=== PATIENT | female | born 1945 | race Caucasian/White ===

== ENCOUNTER 2017-02-26 10:16 | Emergency (ER) | payer OTHER, MEDICARE ==
--- NOTE | 2017-02-26 11:50 | ED ORDER SUMMARY ---
..... Patient: JESSICA CARRILLO OrderSheet [facility] VisitID: [id number] [address] [place] [address] 71y, F Registration Date/Time: 02/26/2017 ORDER SHEET Weight: 81.6 kg (stated) Allergies: Niacin, Oxycodone, LIsinopril GENERAL ORDERS: MEDICATION ORDERS: IV FLUIDS: Dilaudid IV 1 mg (NOW) (10:52 02/26/2017 Elvis MOTLEY) (Ack 10:54 RCollier R.N.) (11:03 RCollier R.N.) Ativan IV 0.5 mg (NOW) (:52 02/26/2017 Elvis MOTLEY) (Ack 10:54 RCollier R.N.) (11:03 RCollier R.N.) ORDER SHEET NOTES: [Electronically signed by Laura Conklin R.N. (12:28 02/26/2017)] [Electronically signed by Simeon Astorga MD (23:18 03/01/2017)] [Electronically locked/signed by Laura Conklin R.N. (12:28 02/26/2017)]
--- NOTE | 2017-02-26 11:50 | ED CLINICAL REPORT ---
Clinical Report - Physicians/Mid Levels Formerly [facility] [address] [place] [address] 02/26/2017 10:16 Patient: JESSICA CARRILLO Time Seen: 10:36 Feb 26 2017. Arrived- By private vehicle. Historian- patient. CPT: ER phys charges level 4 (#[id number]). HISTORY OF PRESENT ILLNESS Chief Complaint: Intractable pain from right lung mass. ( patient was seen 2 days ago for intractable pain. Her physicians at the cancer care [facility] in [place] saw her for this. They increased her morphine from 7.5 mg to 15 mg per dose. This is worked well for her but she notes she missed the middle of the night dose last night and woke up with intractable pain this morning. She feels if she can get ahead of the pain in the ER, her current oral regimen would take care of the rest. She does not feel she needs an adjustment in her home, pain medications.). This started just prior to arrival today and is still present. At its maximum, severity described as severe. When seen in the E.D., severity described as severe. Modifying factors- worsened by movement and cough. Relieved by rest. No current or associated symptoms. Similar symptoms previously: Recent medical care: The patient was seen recently at another facility in a clinic (2 days ago). Seen for similar symptoms. Evaluation/treatment: medication prescribed- Increased morphine dose to 15mg q4-6 hours. REVIEW OF SYSTEMS No fever, sore throat, sinus drainage, nasal congestion or cough. No difficulty breathing, abdominal pain, nausea, vomiting or diarrhea. No black stools, bloody stools, chills, difficulty with urination or skin rash. No calf pain, headache, blackouts or double vision. The patient has had chest pain (chronically) and back pain. No difficulty with ambulation. She has had constipation (3 days). All systems otherwise negative, except as recorded above. PAST HISTORY Lung cancer right lung with mets. [facility]. Cholecystectomy. Hysterectomy. Tubal Ligation. history. Medications: [place] 3 Oral 2 capsules, daily. MetFORMIN HCl Oral (Tablet 1000 mg) 1 tablet, 2x a day. ProAir HFA Inhalation (Aerosol Solution 108 (90 Base) mcg/act) 2 puffs, q 4 hours as needed. ASA Oral 81 mg, daily. Voltaren 1% trans gel 2g, 4x a day as needed. Imipramine HCl Oral (Tablet 10 mg) 1-2 tabs, at bedtime. Toujeo 300 unit/ml- 17units, daily. Fluticasone-Salmeterol Inhalation (Aerosol 115-21 mcg/act), bid. Clobetasol Propionate External (Ointment 0.05 %), bid. Ondansetron Oral 4 mg, as needed. Magnesium Oxide Oral (Tablet 400 (240 Mg) mg) 1 tablet, bid. Senna Oral (Tablet 8.6 mg) 2 tablets, daily. Levothyroxine Sodium Oral (Tablet 25 mcg) 1 tablet, daily. Morphine Sulfate ER Beads Oral 15mg, every 5 hours, pain. Allergies: LIsinopril.(itching) Niacin.(itching, rash) Oxycodone.(itching, rash). SOCIAL HISTORY Never smoker. No alcohol use or drug use. ADDITIONAL NOTES The nursing notes have been reviewed. PHYSICAL EXAM Vital Signs: 02/26/2017 10:24 BP: 137/63. HR: 69. RR: 18. O2 saturation: 93%. Temp: 97.3 F. Gresham-Curiel pain scale: 8/10. Appearance: Alert. Appears to be in pain. Patient in moderate distress. Eyes: Eyes normal inspection. ENT: Pharynx normal. Neck: Normal inspection. CVS: Normal heart rate and rhythm. Heart sounds normal. Respiratory: No respiratory distress. Breath sounds normal. Abdomen: Nontender. Back: Normal inspection. Skin: Normal skin color. No rash. Extremities: Extremities exhibit normal ROM. Neuro: Oriented X 3. No motor deficit. No sensory deficit. PROGRESS AND PROCEDURES Course of Care: [place] Dilaudid 0.5 mg IV. Ativan 0.5 mg IV. Patient is stable. Symptoms much better. Ativan seems to help a lot as well she notes. Patient is stable. Symptoms much better. Patient/family counseled. Disposition: Discharged. Condition: stable and improved. CLINICAL IMPRESSION Intractable pain due to metastatic lung cancer. INSTRUCTIONS Warnings: Further evaluation is necessary. SEDATIVE MEDICATION: You were given sedative medication during your visit. Do not drive or operate dangerous machinery. GENERAL WARNINGS: Return or contact your physician immediately if your condition worsens or changes unexpectedly, if not improving as expected, or if other problems arise. Your Current Medications: STOP TAKING THE FOLLOWING MEDICATIONS: Morphine Sulfate ER Beads Oral : 15mg every 5 hours, pain. Prescription Medications: Ativan 0.5 mg: take 1 orally every 6 hours as needed. Dispense ten (10). No refill. Dilaudid 2mg take 1-2 po q 4 hours prn pain # 30 no refill. Follow-up: Follow up with your doctor in four days. Call for the next available appointment. Understanding of the discharge instructions verbalized by patient and family. Discharge instructions reviewed with and understanding was verbalized by spouse. (Electronically signed by Simeon Astorga MD 03/01/2017 23:18)
--- NOTE | 2017-02-26 11:50 | ED ORDER SUMMARY ---
..... Patient: JESSICA CARRILLO OrderSheet [facility] VisitID: [id number] [address] [place] [address] 71y, F Registration Date/Time: 02/26/2017 ORDER SHEET Weight: 81.6 kg (stated) Allergies: Niacin, Oxycodone, LIsinopril GENERAL ORDERS: MEDICATION ORDERS: IV FLUIDS: Dilaudid IV 1 mg (NOW) (10:52 02/26/2017 Elvis MOTLEY) (Ack 10:54 RCollier R.N.) (11:03 RCollier R.N.) Ativan IV 0.5 mg (NOW) (:52 02/26/2017 Elvis MOTLEY) (Ack 10:54 RCollier R.N.) (11:03 RCollier R.N.) ORDER SHEET NOTES: [Electronically signed by Laura Conklin R.N. (12:28 02/26/2017)] [Electronically signed by Simeon Astorga MD (23:18 03/01/2017)] [Electronically locked/signed by Laura Conklin R.N. (12:28 02/26/2017)]
--- NOTE | 2017-02-26 11:50 | ED NURSING NOTES ---
Clinical Report - Nurses [facility] [address] [place] [address] 02/26/2017 10:16 Patient: JESSICA CARRILLO TRIAGE Triage time 10:24. Acuity: LEVEL 4. Chief Complaint: (pain in right lung). Alert. --10:30 Laura Conklin R.N. 10:24 02/26/17. BP: 137/63. HR: 69. RR: 18. O2 saturation: 93% on room air. Temp: 97.3 F (oral). Gresham-Curiel pain scale: 8/10. --10:30 Laura Conklin R.N. Weight: 81.6 kg stated. Height/Length: 65 inches Per Patient. BMI: 30. --10:27 Laura Conklin R.N. Medications Morphine Sulfate ER Beads Oral 15mg, every 5 hours, pain. --10:32 Laura Conklin R.N. Levothyroxine Sodium Oral (Tablet 25 mcg) 1 tablet, daily. --10:41 Michelle Floyd R.N. Senna Oral (Tablet 8.6 mg) 2 tablets, daily. --10:42 Michelle Floyd R.N. Magnesium Oxide Oral (Tablet 400 (240 Mg) mg) 1 tablet, bid. --10:43 Michelle Floyd R.N. Ondansetron Oral 4 mg, as needed. --10:44 Michelle Floyd R.N. Clobetasol Propionate External (Ointment 0.05 %), bid. --10:45 Michelle Floyd R.N. Fluticasone-Salmeterol Inhalation (Aerosol 115-21 mcg/act), bid. --10:47 Michelle Floyd R.N. Toujeo 300 unit/ml- 17units, daily. --10:47 Michelle Floyd R.N. Imipramine HCl Oral (Tablet 10 mg) 1-2 tabs, at bedtime. --10:49 Michelle Floyd R.N. Voltaren 1% trans gel 2g, 4x a day as needed. --10:49 Michelle Floyd R.N. ASA Oral 81 mg, daily. --10:50 Michelle Floyd R.N. ProAir HFA Inhalation (Aerosol Solution 108 (90 Base) mcg/act) 2 puffs, q 4 hours as needed. --10:50 Michelle Floyd R.N. MetFORMIN HCl Oral (Tablet 1000 mg) 1 tablet, 2x a day. --10:51 Michelle Floyd R.N. [place] 3 Oral 2 capsules, daily. --10:52 Michelle Floyd R.N. Allergies Niacin.(itching, rash) --10:29 Laura Conklin R.N. Oxycodone.(itching, rash) --10:29 Laura Conklin R.N. LIsinopril.(itching) --10:29 Laura Conklin R.N. History Arrived by private vehicle. Historian: patient. Accompanied by family. Primary physician (Dr. Cantor (Dr Whitlock oncologist- [facility])). This started today. 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 (Morphine 15mg today at 0730, 650mg Tylenol today at 0730 & 0820). PAST MEDICAL HX: Immunizations: up-to-date. SOCIAL HX: Smoker- current status unknown. Never smoker. No alcohol use or drug use. FUNCTIONAL ASSESSMENT: Functional assessment performed: requires assistance with the activities of daily living; uses wheelchair, walker and cane- this mobility impairment is an ongoing problem. --10:30 Laura Conklin R.N. PROBLEMS: Cancer. --10:30 Laura Conklin R.N. ADDITIONAL SURGERIES: Cholecystectomy. Hysterectomy. Tubal Ligation. --10:30 Laura Conklin R.N. Interventions ID band on patient. To treatment room. --10:30 Laura Conklin R.N. PHYSICAL ASSESSMENT To room via wheelchair. Patient gowned. GENERAL / NEURO / PSYCH: Alert. Oriented X 4. Appears in pain. HEENT: Mucous membranes are pink. RESPIRATORY: Respirations not labored. CVS: Capillary refill less than 2 seconds. SKIN: Skin is warm and dry. --10:31 Laura Conklin R.N. NURSING PROGRESS NOTES Head of bed elevated. Two patient identifiers checked. Call light placed in reach. Side rails up x 1. Bed placed in lowest position. Brakes of bed on. --10:31 Laura Conklin R.N. Patient ready for evaluation- chart flagged. --10:31 Laura Conklin R.N. 10:37 02/26/2017 Site #1 started via IV in the right hand with an 20g angiocath, with aseptic technique and good blood return; one attempt. Blood drawn: rainbow set. Labeled in the presence of the patient and sent to the lab. Saline lock flushed with 10 mL saline. --11:02 Laura Conklin R.N. 11:00 02/26/2017 Dilaudid (HYDROmorphone HCl PF) IVP 0.5 mg given over 30 second(s) via site #1. Allergies verified, confirmed 5 rights and sedative warning given to the patient. IV patency established. IV site checked: no pain, redness, or swelling. IV flushed thoroughly pre- and post-medication administration. IVP given by RN. --11:03 Laura Conklin R.N. 11:01 02/26/2017 Ativan (LORazepam) IVP 0.5 mg given over 30 second(s) via site #1. Allergies verified, confirmed 5 rights and sedative warning given to the patient. IV patency established. IV site checked: no pain, redness, or swelling. IV flushed thoroughly pre- and post-medication administration. IVP given by RN. --11:03 Laura Conklin R.N. 11:04 02/26/2017 Dilaudid (HYDROmorphone HCl PF) IVP 0.5 mg given over 30 second(s) via site #1. Allergies verified, confirmed 5 rights and sedative warning given to the patient. IV patency established. IV site checked: no pain, redness, or swelling. IV flushed thoroughly pre- and post-medication administration. IVP given by RN ((to complete 1mg order)). --11:07 Laura Conklin R.N. DISPOSITION / DISCHARGE 12:21 02/26/17. BP: 108/86. HR: 72. RR: 15 (regular). O2 saturation: 95% on room air. Temp: deferred. Pain level now: 03/24. --12:26 Laura Conklin R.N. 12:21 02/26/2017 Site #1 removed upon discharge. Catheter intact. Manual pressure and bandage applied. --12:27 Laura Conklin R.N. Condition at departure: improved and stable. No learning barriers present. Discharge instructions provided and reviewed with the patient. Reviewed medication(s) side effects, precautions, dosing and course information. Prescription(s) given to the patient (ATIVAN, DILAUDID). Patient verbalized understanding. Written instructions provided in [place]. The patient was discharged home and accompanied by spouse. She left the Emergency Department in a wheelchair and via private vehicle. Spouse driving. --12:27 Laura Conklin R.N. Locked/Released at 02/26/2017 12:28 by Laura Conklin R.N.
--- NOTE | 2017-02-26 11:50 | ED NURSING NOTES ---
Clinical Report - Nurses [facility] [address] [place] [address] 02/26/2017 10:16 Patient: JESSICA CARRILLO TRIAGE Triage time 10:24. Acuity: LEVEL 4. Chief Complaint: (pain in right lung). Alert. --10:30 Laura Conklin R.N. 10:24 02/26/17. BP: 137/63. HR: 69. RR: 18. O2 saturation: 93% on room air. Temp: 97.3 F (oral). Gresham-Curiel pain scale: 8/10. --10:30 Laura Conklin R.N. Weight: 81.6 kg stated. Height/Length: 65 inches Per Patient. BMI: 30. --10:27 Laura Conklin R.N. Medications Morphine Sulfate ER Beads Oral 15mg, every 5 hours, pain. --10:32 Laura Conklin R.N. Levothyroxine Sodium Oral (Tablet 25 mcg) 1 tablet, daily. --10:41 Michelle Floyd R.N. Senna Oral (Tablet 8.6 mg) 2 tablets, daily. --10:42 Michelle Floyd R.N. Magnesium Oxide Oral (Tablet 400 (240 Mg) mg) 1 tablet, bid. --10:43 Michelle Floyd R.N. Ondansetron Oral 4 mg, as needed. --10:44 Michelle Floyd R.N. Clobetasol Propionate External (Ointment 0.05 %), bid. --10:45 Michelle Floyd R.N. Fluticasone-Salmeterol Inhalation (Aerosol 115-21 mcg/act), bid. --10:47 Michelle Floyd R.N. Toujeo 300 unit/ml- 17units, daily. --10:47 Michelle Floyd R.N. Imipramine HCl Oral (Tablet 10 mg) 1-2 tabs, at bedtime. --10:49 Michelle Floyd R.N. Voltaren 1% trans gel 2g, 4x a day as needed. --10:49 Michelle Floyd R.N. ASA Oral 81 mg, daily. --10:50 Michelle Floyd R.N. ProAir HFA Inhalation (Aerosol Solution 108 (90 Base) mcg/act) 2 puffs, q 4 hours as needed. --10:50 Michelle Floyd R.N. MetFORMIN HCl Oral (Tablet 1000 mg) 1 tablet, 2x a day. --10:51 Michelle Floyd R.N. [place] 3 Oral 2 capsules, daily. --10:52 Michelle Floyd R.N. Allergies Niacin.(itching, rash) --10:29 Laura Conklin R.N. Oxycodone.(itching, rash) --10:29 Laura Conklin R.N. LIsinopril.(itching) --10:29 Laura Conklin R.N. History Arrived by private vehicle. Historian: patient. Accompanied by family. Primary physician (Dr. Cantor (Dr Whitlock oncologist- [facility])). This started today. 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 (Morphine 15mg today at 0730, 650mg Tylenol today at 0730 & 0820). PAST MEDICAL HX: Immunizations: up-to-date. SOCIAL HX: Smoker- current status unknown. Never smoker. No alcohol use or drug use. FUNCTIONAL ASSESSMENT: Functional assessment performed: requires assistance with the activities of daily living; uses wheelchair, walker and cane- this mobility impairment is an ongoing problem. --10:30 Laura Conklin R.N. PROBLEMS: Cancer. --10:30 Laura Conklin R.N. ADDITIONAL SURGERIES: Cholecystectomy. Hysterectomy. Tubal Ligation. --10:30 Laura Conklin R.N. Interventions ID band on patient. To treatment room. --10:30 Laura Conklin R.N. PHYSICAL ASSESSMENT To room via wheelchair. Patient gowned. GENERAL / NEURO / PSYCH: Alert. Oriented X 4. Appears in pain. HEENT: Mucous membranes are pink. RESPIRATORY: Respirations not labored. CVS: Capillary refill less than 2 seconds. SKIN: Skin is warm and dry. --10:31 Laura Conklin R.N. NURSING PROGRESS NOTES Head of bed elevated. Two patient identifiers checked. Call light placed in reach. Side rails up x 1. Bed placed in lowest position. Brakes of bed on. --10:31 Laura Conklin R.N. Patient ready for evaluation- chart flagged. --10:31 Laura Conklin R.N. 10:37 02/26/2017 Site #1 started via IV in the right hand with an 20g angiocath, with aseptic technique and good blood return; one attempt. Blood drawn: rainbow set. Labeled in the presence of the patient and sent to the lab. Saline lock flushed with 10 mL saline. --11:02 Laura Conklin R.N. 11:00 02/26/2017 Dilaudid (HYDROmorphone HCl PF) IVP 0.5 mg given over 30 second(s) via site #1. Allergies verified, confirmed 5 rights and sedative warning given to the patient. IV patency established. IV site checked: no pain, redness, or swelling. IV flushed thoroughly pre- and post-medication administration. IVP given by RN. --11:03 Laura Conklin R.N. 11:01 02/26/2017 Ativan (LORazepam) IVP 0.5 mg given over 30 second(s) via site #1. Allergies verified, confirmed 5 rights and sedative warning given to the patient. IV patency established. IV site checked: no pain, redness, or swelling. IV flushed thoroughly pre- and post-medication administration. IVP given by RN. --11:03 Laura Conklin R.N. 11:04 02/26/2017 Dilaudid (HYDROmorphone HCl PF) IVP 0.5 mg given over 30 second(s) via site #1. Allergies verified, confirmed 5 rights and sedative warning given to the patient. IV patency established. IV site checked: no pain, redness, or swelling. IV flushed thoroughly pre- and post-medication administration. IVP given by RN ((to complete 1mg order)). --11:07 Laura Conklin R.N. DISPOSITION / DISCHARGE 12:21 02/26/17. BP: 108/86. HR: 72. RR: 15 (regular). O2 saturation: 95% on room air. Temp: deferred. Pain level now: 03/24. --12:26 Laura Conklin R.N. 12:21 02/26/2017 Site #1 removed upon discharge. Catheter intact. Manual pressure and bandage applied. --12:27 Laura Conklin R.N. Condition at departure: improved and stable. No learning barriers present. Discharge instructions provided and reviewed with the patient. Reviewed medication(s) side effects, precautions, dosing and course information. Prescription(s) given to the patient (ATIVAN, DILAUDID). Patient verbalized understanding. Written instructions provided in Swazi. The patient was discharged home and accompanied by spouse. She left the Emergency Department in a wheelchair and via private vehicle. Spouse driving. --12:27 Laura Conklin R.N. Locked/Released at 02/26/2017 12:28 by Laura Conklin R.N.
--- NOTE | 2017-03-01 23:19 | ED MAR SUMMARY ---
..... Medication Administration Record [facility] [address] [place] [address] Patient: JESSCIA CARRILLO Visit ID: [id number] 71y, F Weight: 81.6 kg Height/Length: 65 in BMI: 30 ALLERGIES: LIsinopril, Oxycodone, Niacin Given 11:02/26/2017 Laura Conklin R.N. Medication Administered: DILAUDID [IVP] (HYDROMORPHONE HCL PF), Dose: 0.5 mg IVP over 30 second(s), Site: #1 right hand. Medication Ordered: Dilaudid IV 1 mg (NOW). Given 11:02/26/2017 Laura Conklin R.N. Medication Administered: ATIVAN [IVP] (LORAZEPAM), Dose: 0.5 mg IVP over 30 second(s), Site: #1 right hand. Medication Ordered: Ativan IV 0.5 mg (NOW). Given 11:02/26/2017 Laura oCnklin R.N. Medication Administered: DILAUDID [IVP] (HYDROMORPHONE HCL PF), Dose: 0.5 mg IVP over 30 second(s), Site: #1 right hand. Medication Ordered: Dilaudid IV 1 mg (NOW).
--- NOTE | 2017-03-01 23:19 | ED DISCHARGE INSTRUCTIONS ---
Patient: JESSICA CARRILLO General Instructions [facility] VisitID: [id number] [address] [place] [address] 71y, F Registration Date/Time: 02/26/2017 Intractable pain due to metastatic lung cancer. INSTRUCTIONS Warnings: Further evaluation is necessary. SEDATIVE MEDICATION: You were given sedative medication during your visit. Do not drive or operate dangerous machinery. GENERAL WARNINGS: Return or contact your physician immediately if your condition worsens or changes unexpectedly, if not improving as expected, or if other problems arise. Your Current Medications: STOP TAKING THE FOLLOWING MEDICATIONS: Morphine Sulfate ER Beads Oral : 15mg every 5 hours, pain. Prescription Medications: Ativan 0.5 mg: take 1 orally every 6 hours as needed. Dispense ten (10). No refill. Dilaudid 2mg take 1-2 po q 4 hours prn pain # 30 no refill. Follow-up: Follow up with your doctor in four days. Call for the next available appointment. Understanding of the discharge instructions verbalized by patient and family. Discharge instructions reviewed with and understanding was verbalized by spouse. ADDITIONAL INFORMATION Lorazepam Oral tablet What is this medicine? LORAZEPAM (sarah A ze allen) is a benzodiazepine. It is used to treat anxiety. How should I use this medicine? Take this medicine by mouth with a glass of water. Follow the directions on the prescription label. If it upsets your stomach, take it with food or milk. Take your medicine at regular intervals. Do not take it more often than directed. Do not stop taking except on the advice of your doctor or health healthcare financial analyst. Talk to your j2ee software engineer regarding the use of this medicine in children. Special care may be needed. What side effects may I notice from receiving this medicine? Side effects that you should report to your doctor or health healthcare financial analyst as soon as possible: changes in vision confusion depression mood changes, excitability or aggressive behavior movement difficulty, staggering or jerky movements muscle cramps restlessness weakness or tiredness Side effects that usually do not require medical attention (report to your doctor or health healthcare financial analyst if they continue or are bothersome): constipation or diarrhea difficulty sleeping, nightmares dizziness, drowsiness headache nausea, vomiting What may interact with this medicine? barbiturate medicines for inducing sleep or treating seizures, like phenobarbital clozapine medicines for depression, mental problems or psychiatric disturbances medicines for sleep phenytoin probenecid theophylline valproic acid What if I miss a dose? If you miss a dose, take it as soon as you can. If it is almost time for your next dose, take only that dose. Do not take double or extra doses. Where should I keep my medicine? Keep out of the reach of children. This medicine can be abused. Keep your medicine in a safe place to protect it from theft. Do not share this medicine with anyone. Selling or giving away this medicine is dangerous and against the law. Store at room temperature between 20 and 25 degrees C (68 and 77 degrees F). Protect from light. Keep container tightly closed. Throw away any unused medicine after the expiration date. What should I tell my health care provider before I take this medicine? They need to know if you have any of these conditions: alcohol or drug abuse problem bipolar disorder, depression, psychosis or other mental health condition glaucoma kidney or liver disease lung disease or breathing difficulties myasthenia gravis Parkinson's disease seizures or a history of seizures suicidal thoughts an unusual or allergic reaction to lorazepam, other benzodiazepines, foods, dyes, or preservatives or trying to get breast-feeding What should I watch for while using this medicine? Visit your doctor or health healthcare financial analyst for regular checks on your progress. Your body may become dependent on this medicine, ask your doctor or health healthcare financial analyst if you still need to take it. However, if you have been taking this medicine regularly for some time, do not suddenly stop taking it. You must gradually reduce the dose or you may get severe side effects. Ask your doctor or health healthcare financial analyst for advice before increasing or decreasing the dose. Even after you stop taking this medicine it can still affect your body for several days. You may get drowsy or dizzy. Do not drive, use machinery, or do anything that needs mental alertness until you know how this medicine affects you. To reduce the risk of dizzy and fainting spells, do not stand or sit up quickly, especially if you are an older patient. Alcohol may increase dizziness and drowsiness. Avoid alcoholic drinks. Do not treat yourself for coughs, colds or allergies without asking your doctor or health healthcare financial analyst for advice. Some ingredients can increase possible side effects. You have been given the following additional information: Lorazepam Oral tablet (Electronically signed by Simeon Astorga MD 03/01/2017 23:18)
--- NOTE | 2017-03-01 23:19 | ED MED RECONCILIATION SUMMARY ---
Patient: JESSICA CARRILLO Medication Reconciliation Report [facility] VisitID: [id number] [address] [place] [address] 71y, F Registration Date/Time: 02/26/2017 Weight: 81.6 kg Height/Length: 65 in. BMI: 30.0 ALLERGIES: LIsinopril, Niacin, Oxycodone The patient's Home Medications are listed below: STOP TAKING THE FOLLOWING MEDICATIONS: Morphine Sulfate ER Beads Oral 15mg, every 5 hours, pain THE FOLLOWING MEDICATIONS NEED TO BE RECONCILED: ASA Oral 81 mg, daily Clobetasol Propionate External (0.05 %), bid Fluticasone-Salmeterol Inhalation (115-21 mcg/act), bid Imipramine HCl Oral (10 mg) 1-2 tabs, at bedtime Levothyroxine Sodium Oral (25 mcg) 1 tablet, daily Magnesium Oxide Oral (400 (240 Mg) mg) 1 tablet, bid MetFORMIN HCl Oral (1000 mg) 1 tablet, 2x a day [place] 3 Oral 2 capsules, daily Ondansetron Oral 4 mg ProAir HFA Inhalation (108 (90 Base) mcg/act) 2 puffs, q 4 hours Senna Oral (8.6 mg) 2 tablets, daily Toujeo 300 unit/ml- 17units, daily Voltaren 1% trans gel 2g, 4x a day The source(s) of the original Home Medication information: Not obtained. The following Medications were given to the patient in the Emergency Department: Dilaudid [IVP] IVP 0.5 mg, administered: 02/26/2017 11:00:00 AM Ativan [IVP] IVP 0.5 mg, administered: 02/26/2017 11:01:00 AM Dilaudid [IVP] IVP 0.5 mg, administered: 02/26/2017 11:04:00 AM The following Medications were prescribed to the patient: Dilaudid 2mg take 1-2 po q 4 hours prn pain # 30 no refill. -- Simeon Astorga MD Ativan 0.5 mg: take 1 orally every 6 hours as needed. Dispense ten (10). No refill. -- Simeon Astroga MD
--- NOTE | 2017-03-01 23:19 | ED MAR SUMMARY ---
..... Medication Administration Record [facility] [address] [place] [address] Patient: JESSICA CARRILLO Visit ID: [id number] 71y, F Weight: 81.6 kg Height/Length: 65 in BMI: 30 ALLERGIES: LIsinopril, Oxycodone, Niacin Given 11:02/26/2017 Laura Conklin R.N. Medication Administered: DILAUDID [IVP] (HYDROMORPHONE HCL PF), Dose: 0.5 mg IVP over 30 second(s), Site: #1 right hand. Medication Ordered: Dilaudid IV 1 mg (NOW). Given 11:02/26/2017 Laura Conklin R.N. Medication Administered: ATIVAN [IVP] (LORAZEPAM), Dose: 0.5 mg IVP over 30 second(s), Site: #1 right hand. Medication Ordered: Ativan IV 0.5 mg (NOW). Given 11:02/26/2017 Laura Conklin R.N. Medication Administered: DILAUDID [IVP] (HYDROMORPHONE HCL PF), Dose: 0.5 mg IVP over 30 second(s), Site: #1 right hand. Medication Ordered: Dilaudid IV 1 mg (NOW).
--- NOTE | 2017-03-01 23:19 | ED DISCHARGE INSTRUCTIONS ---
Patient: JESSICA CARRILLO General Instructions [facility] VisitID: [id number] [address] [place] [address] 71y, F Registration Date/Time: 02/26/2017 Intractable pain due to metastatic lung cancer. INSTRUCTIONS Warnings: Further evaluation is necessary. SEDATIVE MEDICATION: You were given sedative medication during your visit. Do not drive or operate dangerous machinery. GENERAL WARNINGS: Return or contact your physician immediately if your condition worsens or changes unexpectedly, if not improving as expected, or if other problems arise. Your Current Medications: STOP TAKING THE FOLLOWING MEDICATIONS: Morphine Sulfate ER Beads Oral : 15mg every 5 hours, pain. Prescription Medications: Ativan 0.5 mg: take 1 orally every 6 hours as needed. Dispense ten (10). No refill. Dilaudid 2mg take 1-2 po q 4 hours prn pain # 30 no refill. Follow-up: Follow up with your doctor in four days. Call for the next available appointment. Understanding of the discharge instructions verbalized by patient and family. Discharge instructions reviewed with and understanding was verbalized by spouse. ADDITIONAL INFORMATION Lorazepam Oral tablet What is this medicine? LORAZEPAM (sarah A ze allen) is a benzodiazepine. It is used to treat anxiety. How should I use this medicine? Take this medicine by mouth with a glass of water. Follow the directions on the prescription label. If it upsets your stomach, take it with food or milk. Take your medicine at regular intervals. Do not take it more often than directed. Do not stop taking except on the advice of your doctor or health care provider. Talk to your ep specialist regarding the use of this medicine in children. Special care may be needed. What side effects may I notice from receiving this medicine? Side effects that you should report to your doctor or health care provider as soon as possible: changes in vision confusion depression mood changes, excitability or aggressive behavior movement difficulty, staggering or jerky movements muscle cramps restlessness weakness or tiredness Side effects that usually do not require medical attention (report to your doctor or health care provider if they continue or are bothersome): constipation or diarrhea difficulty sleeping, nightmares dizziness, drowsiness headache nausea, vomiting What may interact with this medicine? barbiturate medicines for inducing sleep or treating seizures, like phenobarbital clozapine medicines for depression, mental problems or psychiatric disturbances medicines for sleep phenytoin probenecid theophylline valproic acid What if I miss a dose? If you miss a dose, take it as soon as you can. If it is almost time for your next dose, take only that dose. Do not take double or extra doses. Where should I keep my medicine? Keep out of the reach of children. This medicine can be abused. Keep your medicine in a safe place to protect it from theft. Do not share this medicine with anyone. Selling or giving away this medicine is dangerous and against the law. Store at room temperature between 20 and 25 degrees C (68 and 77 degrees F). Protect from light. Keep container tightly closed. Throw away any unused medicine after the expiration date. What should I tell my health care provider before I take this medicine? They need to know if you have any of these conditions: alcohol or drug abuse problem bipolar disorder, depression, psychosis or other mental health condition glaucoma kidney or liver disease lung disease or breathing difficulties myasthenia gravis Parkinson's disease seizures or a history of seizures suicidal thoughts an unusual or allergic reaction to lorazepam, other benzodiazepines, foods, dyes, or preservatives or trying to get breast-feeding What should I watch for while using this medicine? Visit your doctor or health care provider for regular checks on your progress. Your body may become dependent on this medicine, ask your doctor or health care provider if you still need to take it. However, if you have been taking this medicine regularly for some time, do not suddenly stop taking it. You must gradually reduce the dose or you may get severe side effects. Ask your doctor or health care provider for advice before increasing or decreasing the dose. Even after you stop taking this medicine it can still affect your body for several days. You may get drowsy or dizzy. Do not drive, use machinery, or do anything that needs mental alertness until you know how this medicine affects you. To reduce the risk of dizzy and fainting spells, do not stand or sit up quickly, especially if you are an older patient. Alcohol may increase dizziness and drowsiness. Avoid alcoholic drinks. Do not treat yourself for coughs, colds or allergies without asking your doctor or health care provider for advice. Some ingredients can increase possible side effects. You have been given the following additional information: Lorazepam Oral tablet (Electronically signed by Simeon Astorga MD 03/01/2017 23:18)
--- NOTE | 2017-03-01 23:19 | ED MED RECONCILIATION SUMMARY ---
Patient: JESSICA CARRILLO Medication Reconciliation Report [facility] VisitID: [id number] [address] [place] [address] 71y, F Registration Date/Time: 02/26/2017 Weight: 81.6 kg Height/Length: 65 in. BMI: 30.0 ALLERGIES: LIsinopril, Niacin, Oxycodone The patient's Home Medications are listed below: STOP TAKING THE FOLLOWING MEDICATIONS: Morphine Sulfate ER Beads Oral 15mg, every 5 hours, pain THE FOLLOWING MEDICATIONS NEED TO BE RECONCILED: ASA Oral 81 mg, daily Clobetasol Propionate External (0.05 %), bid Fluticasone-Salmeterol Inhalation (115-21 mcg/act), bid Imipramine HCl Oral (10 mg) 1-2 tabs, at bedtime Levothyroxine Sodium Oral (25 mcg) 1 tablet, daily Magnesium Oxide Oral (400 (240 Mg) mg) 1 tablet, bid MetFORMIN HCl Oral (1000 mg) 1 tablet, 2x a day [place] 3 Oral 2 capsules, daily Ondansetron Oral 4 mg ProAir HFA Inhalation (108 (90 Base) mcg/act) 2 puffs, q 4 hours Senna Oral (8.6 mg) 2 tablets, daily Toujeo 300 unit/ml- 17units, daily Voltaren 1% trans gel 2g, 4x a day The source(s) of the original Home Medication information: Not obtained. The following Medications were given to the patient in the Emergency Department: Dilaudid [IVP] IVP 0.5 mg, administered: 02/26/2017 11:00:00 AM Ativan [IVP] IVP 0.5 mg, administered: 02/26/2017 11:01:00 AM Dilaudid [IVP] IVP 0.5 mg, administered: 02/26/2017 11:04:00 AM The following Medications were prescribed to the patient: Dilaudid 2mg take 1-2 po q 4 hours prn pain # 30 no refill. -- Simeon Astorga MD Ativan 0.5 mg: take 1 orally every 6 hours as needed. Dispense ten (10). No refill. -- Simeon Astorga MD
== END 2017-02-26 12:21 | disposition home or self-care (01) ==
LOC: ED SRH 10:16
DX: G89.3 Neoplasm related pain (acute) (chronic) (principal); C78.00 Secondary malignant neoplasm of unspecified lung; Z79.84 Long term (current) use of oral hypoglycemic drugs; Z79.82 Long term (current) use of aspirin; Z79.891 Long term (current) use of opiate analgesic; Z79.51 Long term (current) use of inhaled steroids; Z79.899 Other long term (current) drug therapy; Z88.8 Allergy status to other drugs, medicaments and biological substances; Z88.5 Allergy status to narcotic agent